=== PATIENT | female | born 1930 | race Caucasian/White ===

== ENCOUNTER 2017-04-17 09:59 | Day surgery (SDC) | payer MEDICARE, OTHER ==
[2017-04-16 13:30] VITALS: BMI 30.9
--- NOTE | 2017-04-17 12:40 | OP ---
PREOPERATIVE DIAGNOSES: 1. Gastroesophageal reflux disease. 2. Dysphagia. DESCRIPTION OF PROCEDURE: After informed consent was obtained, the patient was placed in the left la teral decubitus position. Anesthesia administered per the Anesthesia Department. Forward viewing en doscope was inserted into esophagus under direct visualization with ease and passed to the second por tion of the duodenum with ease. Second portion of the duodenum was normal except for some erythema i n the second portion of duodenum, biopsies were taken of this area. The duodenal bulb, pylorus, antr um, body, fundus, and cardia were normal. There were some gastric polyps and these were biopsied and placed in a separate container. Retroflexion in the stomach was normal. The esophagus was normal. A 54-Romanian Britton dilator was passed with some moderate resistance. Reinsertion of the dilator sh owed some post-dilatation changes in the proximal esophagus and distal esophagus. ASSESSMENT: 1. Two esophageal strictures - status post dilatation with Britton dilator. 2. Gastric polyps - status post biopsy. 3. Mild nonerosive duodenitis of the second portion of the duodenum - status post biopsy. 4. Otherwise, normal esophagogastroduodenoscopy. RECOMMENDATIONS: 1. Await histopathology. 2. Follow up in my office in 1 month.
[2017-04-17] MEDS ORDERED: Propofol 200 MG/20 ML VIAL ONE (15:25)
[2017-04-17] MEDS ORDERED: Lidocaine 1% PF 5 ML VIAL ONE (15:25)
== END 2017-04-17 13:23 | disposition home or self-care (01) ==
LOC: SDC 09:59
PROVIDERS: ATTEND Internal Medicine Gastroenterology
PROC: 0DB98ZX Excision of Duodenum, Via Natural or Artificial Opening Endoscopic, Diagnostic (ICD-10-PCS; principal; 2017-04-17)
PROC: 0D758ZZ Dilation of Esophagus, Via Natural or Artificial Opening Endoscopic (ICD-10-PCS; 2017-04-17)
DX: K29.70 Gastritis, unspecified, without bleeding (principal); K21.9 Gastro-esophageal reflux disease without esophagitis; K22.2 Esophageal obstruction; K31.7 Polyp of stomach and duodenum; K29.80 Duodenitis without bleeding; I25.10 Atherosclerotic heart disease of native coronary artery without angina pectoris; I50.9 Heart failure, unspecified; Z91.041 Radiographic dye allergy status; Z90.49 Acquired absence of other specified parts of digestive tract; Z95.1 Presence of aortocoronary bypass graft; Z90.710 Acquired absence of both cervix and uterus; Z98.890 Other specified postprocedural states
CPT/HCPCS: 88305; 88312; J2001; J2704

== ENCOUNTER 2017-05-15 08:57 | Outpatient (CLI) | payer MEDICARE, OTHER ==
--- NOTE | 2017-05-15 12:09 | CT ---
CT ABDOMEN AND PELVIS WITH ORAL AND IV CONTRAST: HISTORY: Epigastric pain, gastroesophageal reflux disease. FINDINGS: Comparison is made with the exam dated 01/21/10. A 6 mm parenchymal lung nodule in the right mid lobe is stable. Small low-density lesions in the spl een are again seen. The patient is status post cholecystectomy, appendectomy, and hysterectomy. The liver, pancreas, and adrenal glands are normal. Multiple low-density lesions in the kidneys are again seen likely cysts. No free air, free fluid, o r lymphadenopathy is noted in the abdomen or pelvis. The small bowel loops are not abnormally dilate d. A small fat-containing ventral hernia is again noted. There are degenerative changes in the spin e. The left adnexal cystic mass noted on the previous exam has increased in size measuring 5.3 cm (p reviously 4.3 cm). IMPRESSION: Interval increase in size of the left adnexal cystic mass since 01/31/10. Pelvic ultrasound and gyne cologic consultation is recommended. POS: [facility]
[2017-05-15] MEDS ORDERED: Iopamidol 370 76% 100 ML VIAL ONE (13:10)
== END 2017-05-15 08:58 | disposition home or self-care (01) ==
LOC: CT 08:57
PROVIDERS: ATTEND Internal Medicine Gastroenterology
DX: K21.9 Gastro-esophageal reflux disease without esophagitis (principal); R10.13 Epigastric pain; N85.8 Other specified noninflammatory disorders of uterus
CPT/HCPCS: 74177

== ENCOUNTER 2017-05-16 06:55 | Inpatient (IN) | payer MEDICARE, OTHER ==
[2017-05-16] MEDS ORDERED: Dexamethasone 10 MG/ML VIAL ONE (07:08)
[2017-05-16] MEDS ORDERED: Magnesium Sulfate 2 GM/100 ML BAG ONE (07:10)
[2017-05-16] MEDS ORDERED: Albuterol Sulfate 2.5 mg/0.5 ml Neb ONE (07:14)
[2017-05-16] MEDS ORDERED: Albuterol Sulfate 2.5 mg/3 ml Neb ONE (07:14)
[2017-05-16 07:27] LABS: Actual Bicarbonate (HCO3a) 27.6 mEq/L (22-26); Analyzer IN Cardio ER; CO2 Tension 42.6 mmHg (35.0-45.0); Calcium, Ionized 1.2 mmol/L (1.12-1.30); Hematocrit-ABG 34.3 % (36.0-47.0); Hemoglobin (Hb) 10.2 g/dL (12.0-16.0); O2 Tension (PaO2) 74.5 mmHg (80.0-100.0); Puncture Site RRA; pH, Arterial 7.43 (7.35-7.45)
[2017-05-16 07:54] LABS: #Basophils 0.1 thou/uL (0.0-0.2); #Lymphocytes 2.6 thou/uL (1.20-3.40); #Monocytes 0.7 thou/uL (0.11-0.59); #Neutrophils 13.6 thou/uL (1.40-6.50); %Basophils 0.3 % (0.0-1.0); %Eosinophils 0.1 % (0.0-10.0); %Lymphocytes 15.2 % (21.0-51.0); %Monocytes 3.9 % (0.0-10.0); %Neutrophils 80.5 % (42.0-75.0); Hemoglobin 10.5 g/dL (12.0-16.0); Mean Corpuscular HGB CONC 32.5 g/dL (32.0-36.0); Mean Corpuscular Volume 98.5 fl (81.0-99.0); Mean Platelet Volume 7.8 fL (7.4-10.4); Platelet Count 291 thou/uL (130-400); RBC Distribution Width 14.1 % (11.5-14.5); Red Blood Cell (RBC) Count 3.28 mill/uL (4.20-5.40); White Blood Cell (WBC) Count 16.9 thou/uL (4.8-10.8)
[2017-05-16 08:11] LABS: ALT (SGPT) 12 U/L (8-55); AST (SGOT) 47 U/L (5-34); Alkaline Phosphatase 81 U/L (40-150); Anion Gap 14 mmol/L (10-20); BUN (Urea Nitrogen) 40 mg/dL (9.8-20.1); Bilirubin, Total 0.3 mg/dL (0.2-1.2); CK (CPK) 410 U/L (29-168); Calc. Creatinine Clearance 0 mL/min (70-130); Calcium 9.5 mg/dL (7.8-10.44); Carbon Dioxide 26 mmol/L (23-31); Chloride 102 mmol/L (98-107); Estimated GFR-MDRD 42; Globulin 2.9 g/dL (2.4-3.5); Glucose 156 mg/dL (83-110); Lipase 14 U/L (8-78); Potassium 3.8 mmol/L (3.5-5.1); Protein, Total 6.9 g/dL (6.0-8.3); Sodium 138 mmol/L (136-145)
[2017-05-16 08:22] LABS: CKMB 36.7 ng/mL (0-6.6); Troponin I 7.605 ng/mL (< 0.028)
--- NOTE | 2017-05-16 08:27 | RAD ---
FRONTAL VIEW CHEST: Comparison: 08-15-13, 02-02-15 Indication: Chest pain. FINDINGS: There is enlargement of the cardiac silhouette and prominence of pulmonary vasculature with bilateral interstitial opacities. Bilateral pleural fluid is present. Left side cardiac pacing device is again seen with evidence of prior sternotomy. IMPRESSION: Progressive findings of decompensated CHF when comparing to prior exams. POS: [facility]
[2017-05-16] MEDS ORDERED: Nitroglycerin 2% Ointment 1 INCH/1 GM Packet ONE (08:28)
[2017-05-16] MEDS ORDERED: Furosemide 40 MG/4 ML VIAL ONE (08:28)
[2017-05-16] MEDS ORDERED: Nitroglycerin 50 MG/250 ML BOT 250 ML IVPB SCH ×2 (09:00→11:45)
[2017-05-16] MEDS ORDERED: Heparin 10,000 UNITS/ 10 ML VIAL SLOW IVP SCH (09:15)
[2017-05-16] MEDS ORDERED: Heparin 25,000 units/D5W 500 ML IV SCH (09:15)
[2017-05-16] MEDS ORDERED: Enoxaparin Sodium 80 MG/0.8 ML SYRINGE ONE (10:02)
[2017-05-16 11:07] VITALS: BMI 29.5
--- NOTE | 2017-05-16 11:23 | CON ---
DATE OF CONSULTATION: 05/16/2017 PRIMARY BUSINESS PERFORMANCE SPECIALIST: Dr. Alpesh Daly. REASON FOR CONSULTATION: Non-STEMI. HISTORY OF PRESENT ILLNESS: Mrs. Gerber is a very pleasant 86-year-old white female who comes to the hospital for chest pain. She states it all started yesterday morning at around 6:00 a.m. She state s the pain was really bad. She tells me she knew it was her heart. The pain continued throughout e day and it got really bad overnight. She thought she was not going to make it through the night an d actually woke up the next morning and she tells me that she was hoping to just not wake up. She th ought this was her final heart attack. Because she was awake and she was in pain, she decided to com e in for further evaluation. Here, she was found to have a troponin of 7.6 and a BNP of 1800. Her p ain was already better as compared to last night when it was over 10. She tells me currently it is m ore closer to about 3 or 4. She has significant history of coronary artery disease. She has had byp ass surgery twice back in the and again in 2003. Her most recent heart catheterization was in 2012 and she showed occluded LAD, occluded circumflex, and occluded right coronary. Her grafts she h ad a BANEGAS to the LAD, which was patent and she had a patent vein graft to an OM and a patent vein gra ft to the right. At that point, she was having this procedure for severe aortic stenosis and she und erwent TAVR at that time, she has done well since. Her last echocardiogram was done in the office [facility] about 4 months ago and she had an LV function of 50% to 55%. Her inferior wall was akinetic and h er left atrium was moderately enlarged. Her bioprosthetic aortic valve TAVR seems to be well placed with moderate aortic insufficiency with mild TR. She tells me that she is tired of having procedures . She does not want to have any more procedures at this time. She would like to be conservative wit h her care. I told her that most likely this would mean that her heart was going to be weak and she would have to do with heart failure symptoms for the rest of her days and this heart attack is unlike ly to take her this time around and she is already admitted to the hospital and she is already starte d therapies. She tells me that she is okay with that, but she is tired of undergoing procedures. As she is telling me that her son walks into the room, who is her youngest son, who is the closest one to her and when I tell him what is going on about her heart attack and possibly needing a heart jose alberto terization, his first reaction was immediately tell me that she did not want any more procedures done . Then, I proceed to tell on that, we had already spoken about that and she is leaning towards being conservative with her care. PAST MEDICAL HISTORY: 1. Coronary artery disease. 2. Severe aortic stenosis, status post TAVR. 3. Hyperlipidemia. 4. Hypertension. 5. Biventricular pacemaker insertion. PAST SURGICAL HISTORY: 1. Coronary bypass grafting x2 in 1995 and repeat bypass surgery x3 in 2003. 2. Transcutaneous aortic valve replacement in [place] in 2012. 3. Stent placement to the graft to the circumflex. 4. Pacemaker insertion biventricular. 5. Knee surgery replacement. SOCIAL HISTORY: No alcohol, tobacco, or drugs. OUTPATIENT MEDICATIONS: Include: 1. Tizanidine 2 mg b.i.d. 2. Xanax 0.5 mg twice a day. 3. Hydrocodone. 4. Carvedilol 12.5 mg b.i.d. 5. Aspirin 81 a day. 6. Venlafaxine 75 mg twice a day. 7. Dexilant 60 mg a day. 8. Atorvastatin 20 mg a day. 9. Plavix 75 mg a day. 10. Lasix 40 mg half a tablet in the afternoons. 11. Spironolactone 12.5 mg a day. 12. Sublingual nitro 0.4 mg p.r.n. pain. ALLERGIES: 1. IODINE. 2. CODEINE. 3. KETOROLAC. 4. BUTORPHANOL. FAMILY HISTORY: Noncontributory. REVIEW OF SYSTEMS: A 12 point review of systems was done and is all negative unless stated in the hi story of present illness below. She tells me she has been taking sublingual nitro spray much every hour in the hours overnight. She also tells me she has been having a lot of heartburn for the last 2 months, getting worse the last [address] weeks[address] She had a CT scan yesterday that she thinks might have triggered all this. PHYSICAL EXAMINATION: VITAL SIGNS: Temperature 97.2, pulse 70, respiratory rate 18, satting 98% on 2 liters nasal cannula. GENERAL: Awake, alert, and oriented x3, in no distress. HEENT: Normocephalic, atraumatic. NECK: Supple. LUNGS: Clear. CARDIOVASCULAR: S1, S2, no S3. There is a grade 2/6 systolic murmur in the right upper sternal bord er. ABDOMEN: Soft, positive bowel sounds. EXTREMITIES: 2+ edema bilaterally. She states this is chronic. SKIN: Warm and dry. LABORATORY WORK: Reviewed. CBC with a white count of 16, hemoglobin of 10.5, hematocrit of 32, plat elet count of 291 ABG was reviewed. Chemistry was unremarkable except for BUN of 40, creatinine 1.2 1. GFR was 42. Glucose was 156. Lactic acid was normal. CK-MB was 36. Troponin was 7.6. BNP was 1870. Albumin of 4.0, lipase of 14. IMAGING: Chest x-ray done today in the ER showed decompensated CHF, bilateral pleural fluid. CT of the abdomen and pelvis done yesterday showed an interval increase in the size of the left adnex al cystic mass as compared with a scan in 2010. Recommended a pelvic ultrasound and gynecologic cons ultation, the size went from 4.3 in 2010 to 5.3 yesterday. Most recent echocardiogram was done in the office and the EF of 50% to 55%. Moderate AI on the biopr osthetic valve. EKG was reviewed, paced rhythm. ASSESSMENT AND PLAN: Non-ST elevation myocardial infarction: Most likely she has an occlusion of th e left circumflex graft. I spoke with her at length about needing a heart catheterization. Right no w, she is having ongoing pain and elevated troponins. She tells me that she is tired of having proce dures. She does not want to undergo any other procedures at this time, she would like to only have m edical therapy. She was a little on the fence about this and her son walked in at the same at this p oint, and the first thing that he said when I explained to him that she may need a heart catheterizat ion once that she did not want that. She does not want any more procedures any more. At this point, I think it is reasonable to treat her medically, given her WA probably started 24 hours ago. We sintia l plan on starting her on Lovenox subcutaneous b.i.d. for at least 48 hours. Continue aspirin and Pl avix. We will try to control her pain with the nitroglycerin drip for now and IV morphine. Hopefull y, we will be able to control her symptoms. She tells me that if her symptoms get worse that she may decide to go ahead and have a heart catheterization, but at this point she wants to be DNR/DNI. She wants conservative therapy. I told her that part of the situation meant that she would most likely survive this admission, but having an area of the heart without blood flow, we will most likely make her heart weaker and she may have to deal with some heart failure symptoms for the rest of her life. She tells me that she is not concerned about that. She tells me that she would have prefer to f rom this heart attack, but if she does not she is okay with having some heart failure she has had in the past she tells me, but she really does not want any more procedures done at this time. RECOMMENDATIONS: 1. Full anticoagulation for a total of 48 hours. Lovenox should suffice. 2. Nitro drip to try to keep her pain free as well as IV morphine doses. 3. Patient wishes to be DNR/DNI. 4. I will start treatment with prednisone at 50 mg twice a day just in case she were to decide that she does want to have a heart catheterization done. 5. Continue dual antiplatelet therapy with Plavix and aspirin. 6. Continue statin, beta armida, and KOREY inhibitor before discharge. 7. Patient is severely ill and would not be unexpected. Thank you for letting us participate in the care of your patient. Dr. Daly, her primary Cardiology will follow up in the morning.
[2017-05-16] MEDS ORDERED: ALPRAZolam 0.5 MG TAB PO PRN (11:36)
[2017-05-16] MEDS ORDERED: Acetaminophen 325 MG TAB PO PRN (11:41)
[2017-05-16] MEDS ORDERED: Acetaminophen 650 MG Suppository PR PRN (11:41)
[2017-05-16] MEDS ORDERED: Bisacodyl 5 MG TAB PO PRN (11:41)
--- NOTE | 2017-05-16 12:48 | CON ---
DATE OF CONSULTATION: 05/16/2017 REASON FOR CONSULTATION: ICU management. HISTORY OF PRESENT ILLNESS: The patient is an 86-year-old female who presented today with intractabl e chest pain that has only been responsive to IV nitroglycerin. She has been seen and evaluated by C ardiology. She is having a non-Q-wave myocardial infarction, but is not interested in pursuing any i nterventional evaluation. She says she just wants to be made comfortable and go back home. PAST MEDICAL HISTORY: 1. Coronary artery disease. 2. Aortic stenosis requiring TAVR. 3. Hyperlipidemia. 4. Hypertension. 5. Pacemaker insertion. 6. Gastroesophageal reflux. PAST SURGICAL HISTORY: 1. Coronary bypass grafting surgery x2. 2. Transcutaneous aortic valve replacement. 3. Coronary stent placement. 4. Pacemaker placement. 5. Right knee surgery. 6. Right ankle surgery. 7. Cholecystectomy. 8. Appendectomy. MEDICATIONS PRIOR TO ADMISSION: Tizanidine, Xanax, hydrocodone, carvedilol, aspirin, Effexor, Dexila nt, atorvastatin, Plavix, Lasix, spironolactone, nitroglycerin. ALLERGIES: IODINE, CODEINE, KETOROLAC, BUTORPHANOL. FAMILY MEDICAL HISTORY: Noncontributory. REVIEW OF SYSTEMS: Twelve point review of systems otherwise negative. PHYSICAL EXAMINATION: VITAL SIGNS: Temperature 98.0, pulse 92, blood pressure 151/83, O2 sat 93%, respiratory rate 25. GENERAL: She appears comfortable and is in no distress. HEENT: Unremarkable. NECK: No adenopathy or JVD. LUNGS: A few crackles anteriorly. CARDIOVASCULAR: S1, S2, paced. No murmur. ABDOMEN: Soft, nontender, nondistended. No hepatosplenomegaly. EXTREMITIES: No clubbing, cyanosis. She has trace edema in her ankle region. LABORATORY AND X-RAY FINDINGS: Sodium 138, potassium 3.8, chloride 102, CO2 26, BUN 40, creatinine 1 .2, glucose 156. Troponin 7.6. BNP 1870. ABG, pH 7.43, pCO2 42, pO2 of 74. White blood cell count 16.9, hematocrit 32, platelet count 291. Chest x-ray shows bilateral small effusions, cephalization of flow, perihilar edema and the aforement ioned pacemaker. ASSESSMENT: 1. Myocardial infarction. 2. Some degree of heart failure. 3. Coronary artery disease. PLAN: I do not have much to add to the current care which includes nitroglycerin and anticoagulants. I will be happy to follow with you. Fifty minutes time was spent reviewing the case and formal consultation, 50% of the time was spent ei ther with the patient or on the patient's unit.
--- NOTE | 2017-05-16 17:36 | HP ---
PRIMARY CARE PHYSICIAN: Hyacinth Humphrey M.D. CHIEF COMPLAINT: Chest pain. HISTORY OF PRESENT ILLNESS: Ms. Gerber is a pleasant 86-year-old lady, who was seen at [facility] on 05/16/2017. She developed chest pain and shortness of breath last night arou nd 11:00 p.m. She describes the pain as a constricting band around her chest. She reports that it i s nonradiating, but it is accompanied by significant shortness of breath. She denies any nausea or l ightheadedness. She has been taking nitroglycerin every hour from the onset of chest pain with no re lief. She realized that it was probably cardiac in origin. She took aspirin at 04:00. 911 was call ed. EMS gave patient some more nitrospray as well as DuoNebs. The patient was then brought to the emergency room. She reports that her pain is slightly better after she was started on the nitro drip in the emergency room, currently 08/25. REVIEW OF SYSTEMS: The following complete review of systems was negative, unless otherwise mentioned in the HPI or below: Constitutional: Weight loss or gain, ability to conduct usual activities. Skin: Rash, itching. Eyes: Double vision, pain. ENT/Mouth: Nose bleeding, neck stiffness, pain, tenderness. Cardiovascular: Palpitations, dyspnea on exertion, orthopnea. Respiratory: Shortness of breath, wheezing, cough, hemoptysis, fever or night sweats. Gastrointestinal: Poor appetite, abdominal pain, heartburn, nausea, vomiting, constipation, or diarr hea. Genitourinary: Urgency, frequency, dysuria, nocturia. Musculoskeletal: Pain, swelling. Neurologic/Psychiatric: Anxiety, depression. Allergy/Immunologic: Skin rash, bleeding tendency. PAST MEDICAL HISTORY: Significant for coronary artery disease, aortic stenosis, status post TAVR, dy slipidemia, hypertension, and biventricular pacemaker insertion. PAST SURGICAL HISTORY: Significant for coronary artery bypass grafting x2 in 1995 and repeat bypass surgery x3 in 2003, transcutaneous aortic valve replacements, stent placement of the graft to circumf loretta, pacemaker insertion, and knee surgery. SOCIAL HISTORY: The patient denies tobacco use, alcohol use or recreational drug use. FAMILY HISTORY: Coronary artery disease in patient's sons. ALLERGIES: CODEINE and IODINE. CURRENT MEDICATIONS: Lasix 40 mg daily, spironolactone 25 mg daily, carvedilol 12.5 mg 2 times a day , Plavix 75 mg daily, alprazolam 0.5 mg 3 times a day as needed, isosorbide mononitrate 30 mg daily, venlafaxine 75 mg, potassium chloride 10 mEq daily, and atorvastatin 20 mg daily. CODE STATUS: I discussed her code status. She is DNR. PHYSICAL EXAMINATION: GENERAL: On examination, Ms. Gerber is awake and alert, in mild distress. VITAL SIGNS: Blood pressure is 156/87, pulse is 95. She is breathing at rate of 20 and saturating 9 6% on 2 liters of oxygen. She is afebrile. EYES: No scleral icterus. No conjunctival pallor. ENT: Moist mucosal membranes, no oropharyngeal erythema or exudates. NECK: Supple, nontender, normal range of movement. Trachea is midline. RESPIRATORY: Accessory muscles of breathing are not active. Chest wall movements are symmetric bila terally. Lungs are clear to auscultation without wheeze, rhonchi or crepitations. CARDIOVASCULAR: S1 and S2 are heard, regular. Peripheral pulses palpable. No carotid bruit, no per icardial rub. ABDOMEN: Soft, nontender, bowel sounds are heard, no hepatomegaly, no splenomegaly. MUSCULOSKELETAL: Power is 5/5 in all 4 extremities. Normal range of movement at all major extremity joints. SKIN: No rashes or subcutaneous nodules. Bilateral lower extremity edema. LYMPHATIC: No cervical lymphadenopathy. PSYCHIATRIC: Normal mood, normal affect, patient is oriented to person, place, and time. LABORATORY DATA AND IMAGING: Ms. Gerber's labs and investigations were reviewed. I reviewed her hilario ctrocardiogram, which shows electronic paced rhythm, no ST changes to suggest an acute coronary syndr ome. I also reviewed her chest x-ray, which shows bilateral pleural effusions and pulmonary edema. Laboratory investigations show leukocytosis with 16,900 white cells, of which 80.5% are neutrophils, normocytic anemia with hemoglobin 10.5, normal platelet count, normal electrolytes, elevated blood ur ea nitrogen of 40, elevated creatinine of 1.21, normal lactic acid, elevated AST 47, normal total vicente irubin, normal ALT, normal alkaline positive, elevated CK of 410, elevated troponin I of 7.605 and el evated BNP of 1870. Arterial blood gases show pH of 7.43, pCO2 of 42.6, and pO2 of 74.5. ASSESSMENT AND PLAN: Ms. Gerber is a pleasant 86-year-old lady who was seen at [facility] on 05/16/2017. Her problem list includes: 1. Non-ST elevation myocardial infarction: Ms. Gerber is presenting with non-ST elevation myocardia l infarction. She has already been seen by Cardiology Service, who have offered to take her for card iac catheterization. Ms. Gerber does not wish to have a cardiac catheterization. She will be admitt ed to the hospital for medical management for now, including Lovenox, aspirin, Plavix, beta armida a nd statin. 2. Congestive heart failure exacerbation. We will treat her with intravenous diuretics. We will ch nicolas 2D echocardiogram. 3. Hypertension: Monitor vital signs, titrate antihypertensives as needed. 4. Dyslipidemia.: Continue statin. The patient is being admitted to the Critical Care Unit since s he is on nitro drip. We will consult Pulmonology and Critical Care Medicine for help with management . Many thanks for allowing me to participate in your patient's care. Please feel free to contact me wi th any questions or concerns. LEVEL OF RISK: High. LEVEL OF COMPLEXITY: High.
[2017-05-16] MEDS: tiZANidine HCl 4 MG TAB PO SCH (20:10)
[2017-05-16] MEDS: Carvedilol 25 MG TAB PO SCH (20:11)
[2017-05-16] MEDS: Venlafaxine HCl XR 75 MG CAP PO SCH (20:11)
[2017-05-16] MEDS: Atorvastatin Calcium 20 MG TAB PO SCH (20:11)
[2017-05-16] MEDS: Enoxaparin Sodium 80 MG/0.8 ML SYRINGE SC SCH (20:11)
[2017-05-16] MEDS: predniSONE 50 MG TAB PO SCH (20:12)
[2017-05-17 04:26] LABS: #Lymphocytes 1.8 thou/uL (1.20-3.40); #Monocytes 0.7 thou/uL (0.11-0.59); #Neutrophils 8.7 thou/uL (1.40-6.50); %Basophils 0.1 % (0.0-1.0); %Lymphocytes 16.4 % (21.0-51.0); %Monocytes 6.2 % (0.0-10.0); %Neutrophils 77.3 % (42.0-75.0); Mean Corpuscular HGB CONC 32.8 g/dL (32.0-36.0); Mean Corpuscular Hemoglobin 31.7 pg (27.0-31.0); Mean Corpuscular Volume 96.5 fl (81.0-99.0); Mean Platelet Volume 7.6 fL (7.4-10.4); Platelet Count 246 thou/uL (130-400); RBC Distribution Width 14.2 % (11.5-14.5); Red Blood Cell (RBC) Count 3.17 mill/uL (4.20-5.40); White Blood Cell (WBC) Count 11.2 thou/uL (4.8-10.8)
[2017-05-17 04:47] LABS: Anion Gap 13 mmol/L (10-20); BUN (Urea Nitrogen) 38 mg/dL (9.8-20.1); Calc. Creatinine Clearance 44 mL/min (70-130); Calcium 9.4 mg/dL (7.8-10.44); Carbon Dioxide 27 mmol/L (23-31); Chloride 102 mmol/L (98-107); Estimated GFR-MDRD 46; Glucose 130 mg/dL (83-110); Potassium 4.7 mmol/L (3.5-5.1); Sodium 137 mmol/L (136-145)
[2017-05-17] MEDS: Clopidogrel Bisulfate 75 MG TAB PO SCH (07:58)
[2017-05-17] MEDS: Furosemide 40 MG TAB PO SCH (07:58)
[2017-05-17] MEDS: Aspirin 325 MG TAB PO SCH (07:58)
[2017-05-17] MEDS: Enoxaparin Sodium 80 MG/0.8 ML SYRINGE SC SCH (07:58)
[2017-05-17] MEDS: Carvedilol 25 MG TAB PO SCH ×2 (08:02→20:34)
[2017-05-17] MEDS: Spironolactone 25 MG TAB PO SCH (08:04)
[2017-05-17] MEDS: Venlafaxine HCl XR 75 MG CAP PO SCH ×2 (08:05→20:33)
[2017-05-17] MEDS: tiZANidine HCl 4 MG TAB PO SCH ×2 (08:06→20:34)
[2017-05-17] MEDS: predniSONE 50 MG TAB PO SCH (08:06)
--- NOTE | 2017-05-17 08:49 | PRG ---
DATE OF SERVICE: 05/17/2017 The patient is doing better, having less chest pain. She had a little headache from nitroglycerin. PHYSICAL EXAMINATION: VITAL SIGNS: Temperature is 98.3, pulse 77, blood pressure 130/76, O2 sat 93%. HEENT: Unremarkable. NECK: No JVD. CHEST: Clear. CARDIAC: S1 and S2 regular. A 2/6 systolic murmur. ABDOMEN: Soft, nontender. EXTREMITIES: Trace edema. LABORATORY DATA: White blood cell count 11, hematocrit 30, platelet count 246. Last troponin was 7. 6. Sodium 137, BUN 30, creatinine 1.1, glucose 130. ASSESSMENT: 1. Non-Q-wave myocardial infarction. 2. Congestive heart failure. 3. Coronary artery disease. PLAN: Wean off nitroglycerin today as tolerated. If she does well, then she can transfer out to the floor.
--- NOTE | 2017-05-17 12:17 | PRG ---
DATE OF SERVICE: 05/17/2017. HISTORY: Ms. Gerber is doing better today. She feels weak, but she is not having any further chest pain. PHYSICAL EXAMINATION: VITAL SIGNS: Blood pressure 139/61, pulse is paced in the 70s. NECK: Neck veins are normal. LUNGS: Clear. CARDIAC: Normal S1, normal S2. I do not hear a murmur, rub or gallop. ABDOMEN: Soft, nontender. EXTREMITIES: Warm, dry, no clubbing, cyanosis or edema. Echocardiogram showed ejection fraction 35-40%. The transcutaneously placed aortic valve has no sten osis. There is moderate aortic insufficiency valvular. The patient's creatinine has increased to 1.1 3. Troponin was 7.6 yesterday. ASSESSMENT: 1. Previous bypass on 2 occasions. 2. Previous transcutaneous aortic valve replacement. 3. Non-ST elevation myocardial infarction. 4. Biventricular pacemaker in place. 5. The patient request do not resuscitate status. PLAN: 1. Stop prednisone. 2. Reduce Lovenox. 3. May be able to go home tomorrow. The patient wishes to go home. She wants to be made comfortabl e as her primary goal. She did not consent to other interventional therapy at this point.
[2017-05-17 12:35] LABS: Troponin I 40.185 ng/mL (< 0.028)
--- NOTE | 2017-05-17 12:51 | PDOC.PN ---
- Subjective Encounter Start Date: 05/17/17 Encounter Start Time: 10:40 Pt seen for followup re: NSTEMI. Denies chest pain, shortness of breath, fevers or chills. - Objective Resuscitation Status: Resuscitation Status DNR:Do Not Resuscitate MAR Reviewed: Yes Vital Signs & Weight: Vital Signs (12 hours) Temp Pulse Resp Pulse Ox 05/17/17 12:00 98.4 F 05/17/17 08:00 98.3 F 89 20 93 L 05/17/17 07:00 98.3 F 05/17/17 04:00 98.7 F Weight Weight 171 lb 11.841 oz Most Recent Monitor Data Heart Rate from ECG 68 NIBP 132/55 NIBP BP-Mean 84 Respiration from ECG 24 SpO2 97 I&O: 05/16/17 05/17/17 05/18/17 06:59 06:59 06:59 Intake Total 551.4 150 Output Total 2 1 Balance 549.4 149 Result Diagrams: 05/17/17 04:17 05/17/17 04:17 EKG Reviewed by me: Yes (Tele: paced rhythm) Phys Exam - Physical Examination Constitutional: NAD HEENT: PERRLA, moist MMs, sclera anicteric, oral pharynx no lesions Neck: supple Respiratory: no wheezing, no rales, no rhonchi, clear to auscultation bilateral Cardiovascular: RRR, no rub Gastrointestinal: soft, non-tender, no distention, positive bowel sounds Musculoskeletal: edema present Neurological: moves all 4 limbs Psychiatric: normal affect, A&O x 3 Dx/Plan (1) NSTEMI (non-ST elevated myocardial infarction) Code(s): I21.4 - NON-ST ELEVATION (NSTEMI) MYOCARDIAL INFARCTION Status: Acute (2) CHF exacerbation Code(s): I50.9 - HEART FAILURE, UNSPECIFIED Status: Acute (3) HTN (hypertension) Code(s): I10 - ESSENTIAL (PRIMARY) HYPERTENSION Status: Chronic (4) Dyslipidemia Code(s): E78.5 - HYPERLIPIDEMIA, UNSPECIFIED Status: Chronic - Plan * . For medical management of NSTEMI. Continue diuretics. Discussed with pt, she is making an informed decision not to have cardiac cath. Likely home 24-48 h. Review of Systems - Review of Systems Constitutional: negative: fever, chills, sweats, weakness, malaise Respiratory: negative: Cough, Dry, Shortness of Breath, Hemoptysis, SOB with Excertion, Pleuritic Pain, Sputum, Wheezing Cardiovascular: negative: chest pain, palpitations, orthopnea, paroxysmal nocturnal dyspnea, edema, light headedness Gastrointestinal: negative: Nausea, Vomiting, Abdominal Pain, Diarrhea, Constipation, Melena, Hematochezia Genitourinary: negative: Dysuria, Frequency, Incontinence, Hematuria, Retention - Medications/Allergies Allergies/Adverse Reactions: Allergies Allergy/AdvReac Type Severity Reaction Status Date / Time butorphanol Allergy Verified 05/16/17 13:55 codeine Allergy Verified 05/16/17 13:57 Iodine and Iodide Containing Allergy Verified 04/16/17 13:31 Produc ketorolac Allergy Verified 05/16/17 13:55 Medications: Current Medications Acetaminophen (Tylenol) 650 mg PO Q4H PRN PRN Reason: Headache/Fever or Pain Acetaminophen (Tylenol) 650 mg GA Q4H PRN PRN Reason: Headache/Fever or Pain Alprazolam (Xanax) 0.5 mg PO HSPRN PRN PRN Reason: Anxiety/Insomnia Aspirin (Aspirin) 325 mg PO QAM[facility] Last Admin: 05/17/17 07:58 Dose: 325 mg Atorvastatin Calcium (Lipitor) 20 mg PO [facility] Last Admin: 05/16/17 20:11 Dose: 20 mg Bisacodyl (Dulcolax) 10 mg PO DAILYPRN PRN PRN Reason: Constipation Carvedilol (Coreg) 12.5 mg PO BID [facility] Last Admin: 05/17/17 08:02 Dose: 12.5 mg Clopidogrel Bisulfate (Plavix) 75 mg PO DAILY [facility] Last Admin: 05/17/17 07:58 Dose: 75 mg Enoxaparin Sodium (Lovenox) 60 mg SC 0900,2100 [facility] Furosemide (Lasix) 40 mg PO DAILY [facility] Last Admin: 05/17/17 07:58 Dose: 40 mg Nitroglycerin/Dextrose (Nitroglycerin 50 Mg/250 Ml Bot) 250 mls @ 0 mls/hr IVPB INF [facility]; Titrate PRN Reason: Protocol Isosorbide Mononitrate (Imdur Er) 30 mg PO DAILY [facility] Last Admin: 05/17/17 08:03 Dose: 30 mg Morphine Sulfate (Morphine Sulfate) 2 mg SLOW IVP Q5MIN PRN PRN Reason: Chest Pain Pantoprazole Sodium (Protonix) 40 mg PO DAILY [facility] Last Admin: 05/17/17 08:05 Dose: Not Given Sodium Chloride (Flush - Normal Saline) 10 ml IVF Q12HR [facility] Last Admin: 05/17/17 09:07 Dose: Not Given Sodium Chloride (Flush - Normal Saline) 10 ml IVF PRN PRN PRN Reason: Saline Flush Spironolactone (Aldactone) 25 mg PO DAILY [facility] Last Admin: 05/17/17 08:04 Dose: 25 mg Tizanidine HCl (Zanaflex) 2 mg PO BID [facility] Last Admin: 05/17/17 08:06 Dose: Not Given Venlafaxine HCl (Effexor Xr) 75 mg PO BID [facility] Last Admin: 05/17/17 08:05 Dose: 75 mg
--- NOTE | 2017-05-17 16:43 | PQF ---
CLINICAL DOCUMENTATION IMPROVEMENT CLARIFICATION FORM: ICD-10 Updated PLEASE DO AN ADDENDUM TO THE PROGRESS NOTE WITH ANY DOCUMENTATION UPDATES OR ADDITIONS AND CARRY THROUGH TO DC SUMMARY. THANK YOU. DATE: 05/17/17 ATTN: Dr. Barreto Please exercise your independent, professional judgment in responding to the clarification form. Clinical indicators are provided on the bottom of this form for your review Please check appropriate box(s): HEART FAILURE: A. TYPE: [ X ] Systolic / HFrEF [ ] Diastolic / HFpEF [ ] Combined Systolic / Diastolic [ ] Other diagnosis [ ] Unable to determine In addition, please specify: Present on Admission (POA): [ X ] Yes [ ] No [ ] Unable to determine For continuity of documentation, please document condition throughout progress notes and discharge summary. Thank You. CLINICAL INDICATORS - SIGNS / SYMPTOMS / LABS H&P: CHEST X-RAY, SHOWS BILATERAL PLEURAL EFFUSIONS & PULMONARY EDEMA. BNP 1870 NON-STEMI CONGESTIVE HEART FAILURE EXACERBATION. ECHO 3/2: EF CALCULATED 19.9% PN 3/2: CHF EXACERBATION. ACUTE RISKS: H&P: CAD. CABG X2 IN 1995, AND REPEAT BYPASS X3 IN 2003. AORTIC STENOSIS; S/ P TAVR. HTN, PACEMAKER INSERTION. TREATMENT: CPOE 3/1: NITROGLYCERIN 50 MG IV CPOE 3/1: LASIX 40 MG PO DAILY Thank you, Faith (This form is maintained as a part of the permanent medical record) 2015 [employer]. All Rights Reserved Faith Farias RN, BSN [email or web address] Office: [phone] [facility]
[2017-05-17] MEDS: Enoxaparin Sodium 60 MG/0.6 ML SYRINGE SC SCH (20:33)
[2017-05-17] MEDS: Atorvastatin Calcium 20 MG TAB PO SCH (20:34)
[2017-05-18 05:15] LABS: #Eosinphils 0.1 thou/uL (0.0-0.7); #Monocytes 0.5 thou/uL (0.11-0.59); #Neutrophils 3.5 thou/uL (1.40-6.50); %Basophils 0.3 % (0.0-1.0); %Lymphocytes 32.5 % (21.0-51.0); %Monocytes 8.8 % (0.0-10.0); %Neutrophils 57.4 % (42.0-75.0); Hemoglobin 10.5 g/dL (12.0-16.0); Mean Corpuscular HGB CONC 32.2 g/dL (32.0-36.0); Mean Corpuscular Hemoglobin 31.9 pg (27.0-31.0); Mean Corpuscular Volume 99.1 fl (81.0-99.0); Mean Platelet Volume 8.6 fL (7.4-10.4); Platelet Count 198 thou/uL (130-400); RBC Distribution Width 14.2 % (11.5-14.5); White Blood Cell (WBC) Count 6.1 thou/uL (4.8-10.8)
[2017-05-18 05:47] LABS: Anion Gap 13 mmol/L (10-20); BUN (Urea Nitrogen) 32 mg/dL (9.8-20.1); Calc. Creatinine Clearance 47 mL/min (70-130); Calcium 8.8 mg/dL (7.8-10.44); Carbon Dioxide 25 mmol/L (23-31); Chloride 103 mmol/L (98-107); Estimated GFR-MDRD 49; Glucose 105 mg/dL (83-110); Potassium 3.9 mmol/L (3.5-5.1); Sodium 137 mmol/L (136-145)
[2017-05-18] MEDS: tiZANidine HCl 4 MG TAB PO SCH (08:19)
[2017-05-18] MEDS: Aspirin 325 MG TAB PO SCH (08:20)
[2017-05-18] MEDS: Carvedilol 25 MG TAB PO SCH (08:20)
[2017-05-18] MEDS: Venlafaxine HCl XR 75 MG CAP PO SCH (08:20)
[2017-05-18] MEDS: Spironolactone 25 MG TAB PO SCH (08:20)
[2017-05-18] MEDS: Furosemide 40 MG TAB PO SCH (08:21)
[2017-05-18] MEDS: Clopidogrel Bisulfate 75 MG TAB PO SCH (08:21)
[2017-05-18] MEDS: Enoxaparin Sodium 60 MG/0.6 ML SYRINGE SC SCH (08:22)
--- NOTE | 2017-05-18 12:22 | PDOC.CTH ---
Cardiology Progress Note - Subjective The pt seen and examined. No overnight events. No cardiac complaints. Her questions about NTG administration were answered. She and her family voiced understanding. - Objective Vital Signs Temp Pulse Pulse Pulse Resp BP BP 05/18/17 10:55 69 67 129/59 L 125/62 05/18/17 08:20 98.2 F 77 18 05/18/17 04:00 98.1 F 65 20 BP Pulse Ox Pulse Ox Pulse Ox 05/18/17 10:55 96 93 L 05/18/17 08:20 135/65 97 05/18/17 04:00 165/105 H 96 Weight 171 lb 11.841 oz 05/17/17 05/18/17 05/19/17 06:59 06:59 06:59 Intake Total 551.4 628 Output Total 2 2 Balance 549.4 626 - Physical Examination General/Neuro: alert & oriented x3 Neck: no JVD present Lungs: CTA Heart: RRR Abdomen: soft Extremities: other: (No edema) - Telemetry Telemetry Rhythm: BiV 70s - Labs Result Diagrams: 05/18/17 04:08 05/18/17 04:08 Troponin/CKMB CK-MB (CK-2) 36.7 ng/mL (0-6.6) H* 05/16/17 07:31 Troponin I 40.185 ng/mL (< 0.028) H* 05/17/17 04:17 - Assessment/Plan 1. NSTEMI - No CP or discomfort in her chest. No CALVIN with NC. At this point, the pt do not want to have any interventional therapy and would like to go home. Medical trestment only. On BBlocker, Statin, ASA, and Plavix. 2. Acute on Chronic systolic HF - stable; the pt will d/c home with home O2 PRN 3. HTN - stable with current medication 4. Hx of TAVR - Echo on 05/17/17 showed normal function 5. Hx of BiV PM placement - stable; cont. monitor 6. Hyperlipidemia - on Statin MAR reviewed * The pt refused any interventions during this admission and would like to d/c home today. The pt will f/u with Dr Daly's office within 2-4 wks. * NTG administration instruction given to the pt and family. Review of Systems - Review of Systems EENTM: reports: no symptoms reported Respiratory: reports: no symptoms reported Cardiac (ROS): reports: no symptoms reported ABD/GI: reports: no symptoms reported : reports: no symptoms reported Musculoskeletal: reports: no symptoms reported Skin: reports: no symptoms reported
--- NOTE | 2017-05-18 13:04 | EKG ---
Test Reason : Blood Pressure : / mmHG Vent. Rate : 088 BPM Atrial Rate : 088 BPM P-R Int : 152 ms QRS Dur : 156 ms QT Int : 440 ms P-R-T Axes : 037 113 063 degrees QTc Int : 532 ms Electronic ventricular pacemaker Confirmed by SIERRA KNAPP, NEVILLE ([id number]), senior editor MIKE ALMEIDA ([id number]) on 05/18/2017 1:04:23 PM Referred By: Confirmed By:NEVILLE ESQUIVEL MD
[2017-05-18 15:55] VITALS: BP 161/74; TEMP 98.2
--- NOTE | 2017-05-18 18:44 | DIS ---
DATE OF ADMISSION: 05/16/2017 DATE OF DISCHARGE: 05/18/2017 PRIMARY CARE PHYSICIAN: Chiqui Pérez M.D. DISCHARGE DIAGNOSES: Non-ST elevation myocardial infarction, systolic congestive heart failure exace rbation. Please note that this patient was admitted to Hospitalist Service in error because the emergency room physician thought that her primary care physician is Dr. Hyacinth Humphrey. It was not until the time of discharge that it was clarified that her primary care physician is in fact Dr. Chiqui Pérez. CONDITION OF PATIENT ON THE DAY OF DISCHARGE: Stable. I assessed Ms. Gerber on the day of discharge . She denies any chest pain. She reports shortness of breath with exertion. Vital signs are stable . S1 and S2 are heard, regular. Lungs are clear to auscultation bilaterally. HOSPITAL COURSE: Ms. Gerber is a pleasant 86-year-old lady who was admitted to [facility] on 05/16/2017 for chest pain. She was also found to be having a non-ST elevation myocar dial infarction. She was seen by Cardiology and Pulmonary and Critical Care services. She was admit kajal to the Critical Care Unit because she was on a nitro drip. She discussed with Cardiology Service regarding options including cardiac catheterization. She made an informed decision not to have card iac catheterization. She was also seen by palliative care service. She is being discharged home to [facility] with hospice care through [facility]. On the day of discharge, she has a white count of 6100, hemoglobin 10.5, platelet count 198,000, norm al electrolytes and normal creatinine. Her troponin was 40.185 on 05/17/2017. BNP was 1870 on 05/16. DISCHARGE MEDICATIONS: Xanax 0.5 mg at bedtime as needed, aspirin 325 mg daily, Coreg 12.5 mg 2 time s a day, Plavix 75 mg daily, dexlansoprazole 60 mg daily, Lasix 40 mg daily, [place] p.r.n., Imdur 30 m g daily, Nitrostat p.r.n., potassium chloride 5 mEq 2 times a day, spironolactone 25 mg daily, tizani dine 2 mg 2 times a day, and Effexor XR 75 mg 2 times a day. Many thanks for allowing me to participate in your patient's care. Please feel free to contact me wi th any questions or concerns. DISCHARGE DESTINATION: [facility]. TOTAL AMOUNT OF TIME SPENT COORDINATING THIS DISCHARGE: Thirty five minutes.
== END 2017-05-18 16:00 | disposition hospice, home (50) | DRG 280 ==
LOC: ERS 06:55 → CCU 09:54 → 2NO 05-17 20:58
PROVIDERS: ADMIT Internal Medicine; ATTEND Internal Medicine
DX: I21.4 Non-ST elevation (NSTEMI) myocardial infarction (principal); I50.23 Acute on chronic systolic (congestive) heart failure; Z95.2 Presence of prosthetic heart valve; Z95.1 Presence of aortocoronary bypass graft; I11.0 Hypertensive heart disease with heart failure; E78.5 Hyperlipidemia, unspecified; I25.10 Atherosclerotic heart disease of native coronary artery without angina pectoris; K21.9 Gastro-esophageal reflux disease without esophagitis; Z51.5 Encounter for palliative care; Z66 Do not resuscitate; Z88.5 Allergy status to narcotic agent; Z88.6 Allergy status to analgesic agent; Z88.8 Allergy status to other drugs, medicaments and biological substances; Z79.02 Long term (current) use of antithrombotics/antiplatelets; Z79.82 Long term (current) use of aspirin; Z79.899 Other long term (current) drug therapy; Z95.0 Presence of cardiac pacemaker; Z95.5 Presence of coronary angioplasty implant and graft
CPT/HCPCS: 36415; 71045; 74177; 80048; 80053; 82553; 82565; 82805; 83605; 83690; 83880; 84484; 85025; 87040; 87804; 93005; 93306; 93798; 94644; 96361; 96365; 96367; 96372; 96375; A4216; J1100; J1644; J1650; J1940; J1956; J3475; J7611; J7620